=== PATIENT | male | born 1975 | race Two or more races ===

== ENCOUNTER 2019-04-22 20:23 | Emergency (ER) | payer MEDICAID ==
[~2019-04-22] VITALS: Ht 170.2 cm; Wt 74.8 kg
[2019-04-22 20:46] VITALS: BP 144/79
--- NOTE | 2019-04-22 20:46 | NUR ---
ED Nurse Note: Pt c/o 5/10 pain in L ring finger, swollen, red and draining fluid since sat.
[2019-04-22] MEDS ORDERED: Bactrim-DS 1 tab ORAL ONE (21:15)
--- NOTE | 2019-04-22 21:15 | Emergency Room Report ---
History of Present Illness General Chief Complaint: Skin Rash/Abscess Source: Patient Present Illness [facility] This a 43-year-old male who is right-hand dominant. He has no medical problem. Presents with chief complaint of redness to his left ring finger. Onset for last 2 days. Was very painful and swollen. Earlier today he squeezed it and small amount of pus came out. He thought he may have been bitten by something. Denies any visual animal bite or insect bite. No fever chills but no nausea no vomiting. Pain is throbbing 8 out of 10. Rating up to his elbow. Denies any other complaint. Allergies: Coded Allergies: PENICILLIN G (Verified Allergy, Unknown, 04/22/19) Patient History Past Medical History: see triage record, old chart reviewed Past Surgical History: other Pertinent Family History: none Social History: Denies: smoking Immunizations: other Reviewed Nursing Documentation: PMH: Agreed; PSxH: Agreed Nursing Documentation-PMH Past Medical History: No History, Except For Hx Diabetes: Yes Review of Systems Eye: Denies: eye pain, blurred vision ENT: Denies: ear pain, nose congestion, throat swelling Respiratory: Denies: cough, shortness of breath Cardiovascular: Denies: chest pain, palpitations Gastrointestinal: Denies: abdominal pain, diarrhea, nausea, vomiting Musculoskeletal: Reports: muscle pain; Denies: back pain, joint pain Skin: Denies: rash Neurological: Denies: headache, numbness Endocrine: Denies: increased thirst, increased urine Hematologic/Lymphatic: Denies: easy bruising All Other Systems: negative except mentioned in HPI Physical Exam Vital Signs Date Time Temp Pulse Resp B/P (MAP) Pulse Ox O2 Delivery O2 Flow Rate FiO2 04/22/19 20:46 98.2 77 18 144/79 (100) 97 Room Air Vitals unremarkable Sp02 EP Interpretation: reviewed, normal General Appearance: well appearing, no apparent distress, alert Head: normocephalic, atraumatic Eyes: bilateral eye PERRL, bilateral eye EOMI ENT: hearing grossly normal, normal pharynx Neck: full range of motion, supple, no meningismus Respiratory: chest non-tender, lungs clear, normal breath sounds Cardiovascular #1: regular rate, rhythm, no murmur Gastrointestinal: normal bowel sounds, non tender, no mass, no organomegaly, no bruit, non-distended Musculoskeletal: back normal, gait/station normal, normal range of motion, other - Left Ring finger: On the proximal phalanx on the ulnar side there is an area of erythema about 1 cm. Small necrotic center. Full range of motion of MCP, PIP, DIP joint. Sensation normal. Psychiatric: mood/affect normal Procedures Incision and Drainage Incision and Drainage : Consent: Verbal Site: left 4th finger Blade Size: 11 I & D Procedure: betadine prep, sterile drapes applied Wound Location: upper extremity Anesthesia: 1% Lidocaine Volume Anesthetic (ccs): 1 Patient Tolerated: Well Complications: None Progress Moderate amount of pus expressed. Patient tolerated procedure without any problem. No complication. Medical Decision Making Diagnostic Impression: Primary Impression: Abscess of finger of left hand ER Course Patient with a superficial abscess to his finger. No evidence of deep infection or tenosynovitis. Will discharge home. Last Vital Signs Date Time Temp Pulse Resp B/P (MAP) Pulse Ox O2 Delivery O2 Flow Rate FiO2 04/22/19 20:46 98.2 77 18 144/79 97 Room Air Status: improved Disposition: HOME, SELF-CARE Condition: Stable Scripts Mupirocin* (MUPIROCIN*) 22 Gm Oint...g. 1 APPLIC TOPIC THREE TIMES A DAY, #22 GM Prov: Brady Barber MD 04/22/19 Ibuprofen* (MOTRIN*) 600 Mg Tablet 600 MG ORAL THREE TIMES A DAY, #30 TAB 0 Refills Prov: Brady Barber MD 04/22/19 Trimethoprim/Sulfamethoxazole 160/800* (BACTRIM DS TABLET*) 1 Each Tablet 1 TAB ORAL Q12H, #14 TAB 0 Refills Prov: rBady Barber MD 04/22/19 Patient Instructions: Abscess Additional Instructions: Wound clean. Follow-up with your doctor in 2 to 3 days for recheck. Return if worse. Brady Barber MD Apr 22, 2019 21:15
[2019-04-22] MEDS ORDERED: IBUPROFEN600 MG ORAL (21:52)
[2019-04-22] MEDS ORDERED: MUPIROCIN22 GM TOPIC (21:52)
[2019-04-22] MEDS ORDERED: BACTRIM DS TAB1 EAC1 ORAL (21:52)
[2019-04-22 21:55] VITALS: BP 137/76
--- NOTE | 2019-04-22 21:55 | NUR ---
ER DISCHARGE NOTE: Patient is cleared to be discharged per ERMD, pt is aox4, on room air, with stable vital signs. pt was given dc and prescription instructions, pt was able to verbalize understanding, pt id band removed. pt is able to ambulate with steady gait. pt took all belongings.
== END 2019-04-22 21:55 | disposition home or self-care (01) ==
LOC: EMR 21:08
DX: L02.512 Cutaneous abscess of left hand (principal); E11.9 Type 2 diabetes mellitus without complications; Z88.0 Allergy status to penicillin
CPT/HCPCS: 26010; 99283; Z7502

== ENCOUNTER 2020-08-11 07:38 | Emergency (ER) | payer MEDICAID ==
[~2020-08-11] VITALS: Ht 175.3 cm; Wt 72.6 kg
[~2020-08-11 07:38] MED LIST: BACTRIM DS TAB1 EAC1 ORAL; IBUPROFEN600 MG ORAL; MUPIROCIN22 GM TOPIC
--- NOTE | 2020-08-11 07:45 | NUR ---
ED Nurse Note: Pt ambulated to ED from home stating he had a fever on 08/08/2020, pt was tested for covid twice on same day at work one came negative and then postive. Pt also has rashes on right arm. Pt afebrile upon triage. Pt is AOx4, calm and cooperative to care, VSS, on RA, breathing even and unlabored.
[2020-08-11 07:54] VITALS: BP 141/67
--- NOTE | 2020-08-11 08:12 | NUR ---
ED Nurse Note: pt swab for covid primex, sent to lab.
[2020-08-11] MEDS ORDERED: FAMOTIDINE20 MG ORAL (08:29)
[2020-08-11] MEDS ORDERED: PREDNISONE20 MG ORAL (08:29)
[2020-08-11] MEDS ORDERED: DIPHENHYDRAMINE25 M1 ORAL (08:29)
[2020-08-11 08:40] VITALS: BP 138/68
--- NOTE | 2020-08-11 09:31 | Emergency Room Report ---
History of Present Illness General Chief Complaint: General Complaint Source: Patient Present Illness HPI 44-year-old male presents for evaluation. States that he has had it on and off fever for the last few days. His work gave him a Covid test. One was positive one was negative. Patient also noting a rash to his arms and legs. Took a picture. Believes it is an allergic reaction. States is very itchy. Denies tongue swelling or throat swelling. Denies shortness of breath. Denies cough. No other aggravating relieving factors. 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 COVID-19 Screening: PUI COVID-19 COVID-19 Testing Source: oral swab Patient History Past Medical History: none, DM Past Surgical History: none Pertinent Family History: none Social History: Denies: smoking, alcohol use, drug use Immunizations: UTD Reviewed Nursing Documentation: PMH: Agreed; PSxH: Agreed Nursing Documentation-PMH Past Medical History: No History, Except For Hx Diabetes: Yes Review of Systems All Other Systems: negative except mentioned in HPI Physical Exam Vital Signs Date Time Temp Pulse Resp B/P (MAP) Pulse Ox O2 Delivery O2 Flow Rate FiO2 08/11/20 07:41 97.9 87 16 141/67 (91) 99 Room Air Sp02 EP Interpretation: reviewed, normal General Appearance: no apparent distress, alert, GCS 15, non-toxic Head: normocephalic, atraumatic Eyes: bilateral eye normal inspection, bilateral eye PERRL ENT: hearing grossly normal, normal pharynx, no angioedema, normal voice Neck: full range of motion, supple/symm/no masses Respiratory: chest non-tender, lungs clear, normal breath sounds, speaking full sentences Cardiovascular #1: regular rate, rhythm, no edema Cardiovascular #2: 2+ carotid (R), 2+ carotid (L), 2+ radial (R), 2+ radial (L), 2+ dorsalis pedis (R), 2+ dorsalis pedis (L) Gastrointestinal: normal bowel sounds, non tender, soft, non-distended, no guarding, no rebound Rectal: deferred Genitourinary: normal inspection, no CVA tenderness Musculoskeletal: back normal, normal range of motion, gait/station normal, non- tender Neurologic: alert, motor strength/tone normal, oriented x3, sensory intact, responsive, speech normal Psychiatric: judgement/insight normal, memory normal, mood/affect normal, no suicidal/homicidal ideation Reflexes: 3+ bicep (R), 3+ bicep (L), 3+ tricep (R), 3+ tricep (L), 3+ knee (R), 3+ knee (L) Skin: rash - urticarial rash diffuse to arms and legs. Lymphatic: no adenopathy Medical Decision Making Diagnostic Impression: Primary Impression: Allergic reaction Qualified Codes: T78.40XA - Allergy, unspecified, initial encounter ER Course Hospital Course 44-year-old male presents with rash Differential diagnoses include: allergic reaction, angioedema Clinical course Patient placed on stretcher. pvc monitor. After initial history exam reveals male in no acute distress. There is diffuse urticarial rash to the arms and legs. Remainder of exam unremarkable. Lungs clear. No stridor. Safe for discharge with close outpatient follow-up. Is concerned about the contradicting Covid testing. Has a son at home with leukemia. We will send out a Covid test. Will take 48 to 72 hours to yield results. We will contact him if results are positive. Safe for discharge and close outpatient follow-up. I will provide referrals i. I feel this is a highly complex case requiring extensive working including EKG/Rhythm strip, Xray/CT/US, Blood/urine lab work, repeat exams while in ED, and administration of strong opiates/narcotics for pain control, admission to hospital or close patient follow up. Diagnosis - allergic reaction Stable and discharged to home with prescriptions for pepcid, prednisone, Benadryl. Followup with PMD. Return to ED if symptoms recur or worsen Last Vital Signs Date Time Temp Pulse Resp B/P (MAP) Pulse Ox O2 Delivery O2 Flow Rate FiO2 08/11/20 08:40 97.9 75 18 138/68 99 Room Air Status: improved Disposition: HOME, SELF-CARE Condition: Stable Scripts Famotidine* (Pepcid 20mg tablet*) 20 Mg Tablet 20 MG ORAL DAILY for Gerd, #30 TAB 0 Refills Prov: Cristiano Woodruff MD 08/11/20 Diphenhydramine Hcl* (DIPHENHYDRAMINE HCL*) 25 Mg Capsule 25 MG ORAL Q6H PRN for Itching, #30 CAP 0 Refills Prov: Cristiano Woodruff MD 08/11/20 Prednisone* (PREDNISONE*) 20 Mg Tablet 40 MG ORAL DAILY, #10 TAB Prov: Cristiano Woodruff MD 08/11/20 Referrals: NON PHYSICIAN (PCP) Becka Vazquez [facility] Patient Instructions: Hives, [id number] Additional Instructions: we tested you for Covid. The test results will take 48 to 72 hours to return. if your test results come back positive we will contact you. Cristiano Woodruff MD Aug 11, 2020 09:31
== END 2020-08-11 08:40 | disposition home or self-care (01) ==
LOC: EMR 08:18
DX: U07.1 COVID-19 (principal); R50.9 Fever, unspecified; T78.40XA Allergy, unspecified, initial encounter; E11.9 Type 2 diabetes mellitus without complications; X58.XXXA Exposure to other specified factors, initial encounter; Z88.0 Allergy status to penicillin
CPT/HCPCS: J7512; U0004; Z7502; 99282